=== PATIENT | male | born 1975 | race African-American/Black ===

== ENCOUNTER 2019-05-02 11:33 | Emergency (ER) | payer MEDICARE, MEDICAID ==
[~2019-05-02] VITALS: Ht 180.3 cm; Wt 66.2 kg
--- NOTE | 2019-05-02 11:42 | NUR ---
ED Nurse Note: pt triaged, currently in waiting room to be called.
[2019-05-02 12:20] VITALS: BP 94/52
--- NOTE | 2019-05-02 12:30 | NUR ---
ED Nurse Note:pt. left before seen by ER
[2019-05-02 12:33] VITALS: BP 94/52
--- NOTE | 2019-05-02 15:00 | Emergency Room Report ---
History of Present Illness General Chief Complaint: Medication Refill Source: Patient Present Illness HPI This patient left prior to evaluation by medical provider. Allergies: Coded Allergies: No Known Allergies (Unverified , 05/02/19) Nursing Documentation-[facility] Past Medical History: No History, Except For History Of Psychiatric Problem: Yes Physical Exam Vital Signs Date Time Temp Pulse Resp B/P (MAP) Pulse Ox O2 Delivery O2 Flow Rate FiO2 05/02/19 11:34 98.2 85 19 94/52 (66) 96 Room Air Medical Decision Making PA Attestation Dr. Vidal Is my supervising Physician whom patient management has been discussed with. Diagnostic Impression: Primary Impression: Patient left without being seen ER Course This patient left prior to evaluation by medical provider. Last Vital Signs Date Time Temp Pulse Resp B/P (MAP) Pulse Ox O2 Delivery O2 Flow Rate FiO2 05/02/19 12:33 98.2 19 94/52 96 Room Air 05/02/19 11:34 85 Disposition: HOME, SELF-CARE Condition: Unknown Referrals: NOT CHOSEN IPA/,REFERRING (PCP) Yadira Frey May 02, 2019 15:00
== END 2019-05-02 13:00 | disposition home or self-care (01) ==
LOC: EMR 12:30
DX: Z53.21 Procedure and treatment not carried out due to patient leaving prior to being seen by health care provider (principal)